=== PATIENT | female | born 1985 | race Caucasian/White ===

== ENCOUNTER 2016-10-10 12:09 | Emergency (ER) | payer OTHER ==
[~2016-10-10] VITALS: Ht 172.7 cm; Wt 78.5 kg
[~2016-10-10 12:09] MED LIST: HYDR-3240 PO; MOTRIN PO; PREN1TAB60 PO
[2016-10-10 12:12] VITALS: BP 119/76
[2016-10-10] MEDS ORDERED: SODIUM CHLORIDE FLUSH 10ML SYR IVF ONE (12:30)
[2016-10-10] MEDS ORDERED: SODIUM CHLORIDE 0.9% 1,000ML IVBOLUS ONE (12:30)
[2016-10-10 13:08] LABS: BLOOD UREA NITROGEN 13 mg/dL (7-18)
== END 2016-10-10 17:41 | disposition home or self-care (01) ==
LOC: ED 16:08
DX: O26.893 Other specified pregnancy related conditions, third trimester (principal); Z3A.34 34 weeks gestation of pregnancy; R00.2 Palpitations; R07.89 Other chest pain
CPT/HCPCS: 36415; 80048; 82040; 84439; 84443; 85025; 93005; 99285

== ENCOUNTER 2016-10-10 16:44 | Outpatient (CLI) | payer OTHER ==
[~2016-10-10] VITALS: Ht 172.7 cm; Wt 76.4 kg
[2016-10-10 17:14] VITALS: BP 104/61
== END 2016-10-10 17:55 | disposition home or self-care (01) ==
LOC: LDOP 16:44
PROVIDERS: ATTEND Obstetrics & Gynecology
DX: Z34.93 Encounter for supervision of normal pregnancy, unspecified, third trimester (principal); Z3A.34 34 weeks gestation of pregnancy
CPT/HCPCS: 36415; 59025; 84436; 99211; G0463

== ENCOUNTER 2016-11-15 07:52 | Inpatient (IN) | payer OTHER ==
[~2016-11-15] VITALS: Ht 172.7 cm; Wt 78.2 kg
[2016-11-15 08:00] VITALS: BP 113/64
[2016-11-15] MEDS: LACTATED RINGERS 1,000 ML IV SCH ×4 (08:10→21:42)
[2016-11-15] MEDS ORDERED: D5%-LACTATED RINGERS 1,000 ML IV SCH (08:14)
[2016-11-15] MEDS ORDERED: OXYTOCIN 30U/ 0.9% NaCL 500ML 500 ML IV PRN (08:14)
[2016-11-15] MEDS ORDERED: OXYTOCIN 30U/ 0.9% NaCL 500ML 500 ML IV ONE (08:14)
[2016-11-15] MEDS ORDERED: TERBUTALINE 1 MG/ML, 1ML IVPush PRN (08:30)
[2016-11-15] MEDS ORDERED: BUTORPHANOL 1 MG/ML, 1ML IVPush PRN (08:30)
[2016-11-15] MEDS ORDERED: FENTANYL PF 100 MCG/2ML IVPush PRN (08:30)
[2016-11-15] MEDS ORDERED: ALUMINUM/MAG/SIMETHICONE 30 ML UDC PO PRN (08:30)
[2016-11-15] MEDS ORDERED: SODIUM CITRATE/CITRIC ACID 30 ML UDC PO PRN (08:30)
[2016-11-15] MEDS ORDERED: ONDANSETRON 2MG/ML, 2ML IVPush PRN (08:30)
[2016-11-15] MEDS ORDERED: METOCLOPRAMIDE 5 MG/ML, 2ML IVPush PRN (08:30)
[2016-11-15] MEDS ORDERED: FENTANYL PF 100 MCG/2ML IV PRN (08:30)
[2016-11-15] MEDS ORDERED: NEWBORN KIT ONE (08:37)
[2016-11-15] MEDS ORDERED: OXYTOCIN 30U/ 0.9% NaCL 500ML 500 ML ONE (08:40)
[2016-11-15] MEDS ORDERED: BUPIVACAINE 0.25% ONE ×2 (09:27→09:28)
[2016-11-15] MEDS ORDERED: FENTANYL/BUPIV./NS/PF 250 ML EPIDCONT ONE (09:27)
[2016-11-15] MEDS ORDERED: FENTANYL PF 100 MCG/2ML ONE (09:27)
[2016-11-15] MEDS ORDERED: LIDOCAINE/PF 1.5%-EPI 1:200K, 30ML ONE (09:28)
[2016-11-15] MEDS: OXYTOCIN 30U/ 0.9% NaCL 500ML 500 ML IV SCH (18:45)
[2016-11-15] MEDS ORDERED: HYDROcodone/APAP 5/325 TABLET PO PRN ×2 (19:00)
[2016-11-15] MEDS ORDERED: CARBOPROST TROMETHAMINE 250 MCG/ML, 1ML IM PRN (19:00)
[2016-11-15] MEDS ORDERED: METHYLERGONOVINE 0.2 MG/ML IM PRN (19:00)
[2016-11-15] MEDS ORDERED: ONDANSETRON 2MG/ML, 2ML IV PRN (19:00)
[2016-11-15] MEDS ORDERED: MISOPROSTOL 200 MCG TABLET PR PRN (19:00)
[2016-11-15] MEDS ORDERED: CALCIUM CARBONATE 500 MG TAB.CHEW PO PRN (19:00)
[2016-11-15] MEDS ORDERED: ACETAMINOPHEN 325 MG TABLET PO PRN (19:00)
[2016-11-15 20:35] VITALS: BP 97/57
[2016-11-15] MEDS: IBUPROFEN 600 MG TABLET PO PRN (21:24)
[2016-11-15] MEDS: DOCUSATE 100 MG CAPSULE PO PRN (21:24)
[2016-11-15] MEDS ORDERED: FENTANYL/BUPIV./NS/PF 250 ML EPIDCONT SCH (21:42)
[2016-11-15] MEDS ORDERED: LACTATED RINGERS 1,000 ML IVBOLUS PRN (22:00)
[2016-11-15 23:40] VITALS: BP 101/54
[2016-11-16] MEDS: IBUPROFEN 600 MG TABLET PO PRN ×2 (03:59→13:07)
[2016-11-16 04:00] VITALS: BP 95/61
[2016-11-16] MEDS: OXYTOCIN 30U/ 0.9% NaCL 500ML 500 ML IV SCH ×2 (04:45→14:45)
[2016-11-16] MEDS: LACTATED RINGERS 1,000 ML IV SCH ×2 (05:42→13:42)
[2016-11-16 07:50] VITALS: BP 115/63
[2016-11-16] MEDS: DOCUSATE 100 MG CAPSULE PO PRN (08:04)
[2016-11-16] MEDS ORDERED: PRENATAL VIT/IRON/FA 1 EACH TABLET PO SCH (09:00)
[2016-11-16] MEDS ORDERED: HYDR-3240 PO (11:54)
[2016-11-16] MEDS ORDERED: IBUP-1222 PO (11:55)
== END 2016-11-16 17:30 | disposition home or self-care (01) | DRG 775 ==
LOC: LDIP 07:53 → 2NW 20:37
PROVIDERS: ADMIT Obstetrics & Gynecology; ATTEND Obstetrics & Gynecology
PROC: 10E0XZZ Delivery of Products of Conception, External Approach (ICD-10-PCS; principal; 2016-11-15)
PROC: 10907ZC Drainage of Amniotic Fluid, Therapeutic from Products of Conception, Via Natural or Artificial Opening (ICD-10-PCS; 2016-11-15)
PROC: 0HQ9XZZ Repair Perineum Skin, External Approach (ICD-10-PCS; 2016-11-15)
PROC: 3E033VJ Introduction of Other Hormone into Peripheral Vein, Percutaneous Approach (ICD-10-PCS; 2016-11-15)
PROC: 00HU33Z Insertion of Infusion Device into Spinal Canal, Percutaneous Approach (ICD-10-PCS; 2016-11-15)
PROC: 3E0R3CZ (ICD-10-PCS; 2016-11-15)
DX: O69.1XX0 Labor and delivery complicated by cord around neck, with compression, not applicable or unspecified (principal); Z37.0 Single live birth; O70.0 First degree perineal laceration during delivery; Z3A.39 39 weeks gestation of pregnancy
CPT/HCPCS: 36415; 85025; 86850; 86900; J3490; J2590; J3010; J7120; J7121